=== PATIENT | female | born 1970 | race Caucasian/White ===

== ENCOUNTER 2019-09-21 15:57 | Emergency (ER) | payer BC, OTHER ==
[~2019-09-21] VITALS: Ht 165.1 cm; Wt 72.6 kg
--- NOTE | 2019-09-21 19:00 | Diagnostic Imaging Report ---
EXAMINATION: CHEST SINGLE (PORTABLE) INDICATION: ^short of breath ^[id number] ^[id number]. COMPARISON: None FINDINGS: AP view TUBES and LINES: None. LUNGS/PLEURA: Lungs are well inflated. There is no evidence of pneumonia or pulmonary edema.. There is no pleural effusion or pneumothorax. HEART AND MEDIASTINUM: The cardiomediastinal silhouette is unremarkable. BONES AND SOFT TISSUES: No acute osseous lesion. Soft tissues are unremarkable. UPPER ABDOMEN: No free air under the diaphragm. IMPRESSION: No acute thoracic abnormality. Signed by: Emiliano Pope MD on 09/21/2019 6:56 PM
== END 2019-09-21 19:17 | disposition home or self-care (01) ==
LOC: ER 15:57
DX: R05 Cough (principal); R06.09 Other forms of dyspnea; R11.2 Nausea with vomiting, unspecified
CPT/HCPCS: 71045; 99283